=== PATIENT | female | born 1970 | race African-American/Black ===

== ENCOUNTER 2023-08-02 23:01 | Emergency (ER) | payer SELFPAY ==
[~2023-08-02] VITALS: Ht 162.6 cm; Wt 73.0 kg
[2023-08-02 23:05] VITALS: O2SAT 100
[2023-08-03] MEDS: MAGNESIUM/ALUMINUM HYDROXIDE/SIMETHICONE 30ML UDC PO ONE (01:52)
[2023-08-03 01:53] VITALS: TEMP 98.3
[2023-08-03] MEDS: ACETAMINOPHEN 325MG TABLET PO ONE (01:53)
[2023-08-03] MEDS: PANTOPRAZOLE 40MG DR TABLET PO ONE (01:53)
[2023-08-03] MEDS ORDERED: POLY119P2 MT (02:35)
[2023-08-03] MEDS ORDERED: FEO PR (02:35)
[2023-08-03] MEDS ORDERED: MAG-55 MT (02:35)
[2023-08-03] MEDS ORDERED: FAMO40TA70 MT (02:35)
[2023-08-03 03:42] VITALS: BP 113/58; PULSE 86; RESP 12
== END 2023-08-03 03:56 | disposition home or self-care (01) ==
LOC: ER 23:01
DX: K21.9 Gastro-esophageal reflux disease without esophagitis (principal); K59.00 Constipation, unspecified; K29.70 Gastritis, unspecified, without bleeding; I10 Essential (primary) hypertension; Z87.891 Personal history of nicotine dependence
CPT/HCPCS: 76700; 99284

== ENCOUNTER 2023-08-06 15:11 | Emergency (ER) | payer SELFPAY ==
[~2023-08-06] VITALS: Ht 167.6 cm; Wt 81.0 kg
[~2023-08-06 15:11] MED LIST: FAMO40TA70 MT; FEO PR; MAG-55 MT; POLY119P2 MT
[2023-08-06 15:15] VITALS: BP 0/0; PULSE 0; RESP 16; O2SAT 0
== END 2023-08-06 16:47 | disposition left against medical advice (07) ==
LOC: ER 15:11
DX: Z76.0 Encounter for issue of repeat prescription (principal); I10 Essential (primary) hypertension
CPT/HCPCS: 99283

== ENCOUNTER 2023-08-07 19:36 | Emergency (ER) | payer SELFPAY ==
[~2023-08-07] VITALS: Ht 167.6 cm; Wt 75.0 kg
[2023-08-07] MEDS ORDERED: ACETAMINOPHEN 325MG TABLET PO ONE (22:45)
[2023-08-07 23:03] VITALS: BP 168/100; PULSE 85; RESP 16
[2023-08-08] MEDS ORDERED: GABA-529 MT (12:24)
== END 2023-08-08 01:12 | disposition home or self-care (01) ==
LOC: ER 19:36
DX: R07.9 Chest pain, unspecified (principal); R60.9 Edema, unspecified; I10 Essential (primary) hypertension
CPT/HCPCS: 93970; 99284

== ENCOUNTER 2023-08-08 01:16 | Emergency (ER) | payer SELFPAY ==
[~2023-08-08] VITALS: Ht 167.6 cm; Wt 72.6 kg
[2023-08-08] MEDS ORDERED: GABAPENTIN 100MG CAPSULE PO ONE (03:45)
[2023-08-08] MEDS: ACETAMINOPHEN 325MG TABLET PO ONE (03:45)
[2023-08-08] MEDS: GABAPENTIN 100MG CAPSULE PO NR (06:30)
[2023-08-08] MEDS: ACETAMINOPHEN 325MG TABLET PO NR (06:30)
[2023-08-08] MEDS ORDERED: GABA-529 MT (12:24)
[2023-08-08 12:30] VITALS: BP 128/70; PULSE 78; RESP 20
== END 2023-08-08 12:31 | disposition home or self-care (01) ==
LOC: ER 01:27
DX: G62.9 Polyneuropathy, unspecified (principal); I10 Essential (primary) hypertension
CPT/HCPCS: 99283; Z7610 ×2